=== PATIENT | female | born 1945 | race Native Hawaiian/Other Pacific Islander ===

== ENCOUNTER 2016-09-29 09:18 | Outpatient (CLI) | payer OTHER | END 2016-09-29 19:07 | disposition home or self-care (01) | LOC: MAMMO 09:18 | DX: Z12.31 Encounter for screening mammogram for malignant neoplasm of breast (principal) | CPT/HCPCS: G0202-TC ==

== ENCOUNTER 2016-10-26 08:03 | Outpatient (CLI) | payer OTHER ==
[2016-10-26 08:44] LABS: PLATELET COUNT 278 K/uL (152-353)
[2016-10-26 09:00] LABS: POTASSIUM 4.2 mmol/L (3.6-5.2); SODIUM 135 mmol/L (136-145)
== END 2016-10-26 18:57 | disposition home or self-care (01) ==
LOC: LABW 08:03
PROVIDERS: Internal Medicine
DX: I10 Essential (primary) hypertension (principal)
CPT/HCPCS: 36415; 80053; 80061; 81000; 82043; 82570; 85027

== ENCOUNTER 2017-10-03 09:24 | Outpatient (CLI) | payer OTHER | END 2017-10-03 23:00 | disposition home or self-care (01) | LOC: MAMMO 09:24 | DX: Z12.31 Encounter for screening mammogram for malignant neoplasm of breast (principal) ==

== ENCOUNTER 2018-06-21 09:06 | Outpatient (CLI) | payer OTHER ==
[2018-06-21 09:35] LABS: PLATELET COUNT 292 K/uL (152-353)
[2018-06-21 09:58] LABS: POTASSIUM 4.5 mmol/L (3.6-5.2)
== END 2018-06-21 20:07 | disposition home or self-care (01) ==
LOC: LABW 09:06
PROVIDERS: Internal Medicine
DX: Z00.00 Encounter for general adult medical examination without abnormal findings (principal); I10 Essential (primary) hypertension; Z79.899 Other long term (current) drug therapy
CPT/HCPCS: 36415; 80053; 80061; 81000; 84443; 85027

== ENCOUNTER 2018-10-05 09:01 | Outpatient (CLI) | payer OTHER | END 2018-10-05 22:47 | disposition home or self-care (01) | LOC: MAMMO 09:01 | DX: Z12.31 Encounter for screening mammogram for malignant neoplasm of breast (principal) ==

== ENCOUNTER 2018-11-27 15:13 | Outpatient (CLI) | payer OTHER | END 2018-11-27 21:12 | disposition home or self-care (01) | LOC: RAD 15:13 | DX: J40 Bronchitis, not specified as acute or chronic (principal) ==

== ENCOUNTER 2019-10-07 08:59 | Outpatient (CLI) | payer OTHER | END 2019-10-07 19:10 | disposition home or self-care (01) | LOC: MAMMO 08:59 | DX: Z12.31 Encounter for screening mammogram for malignant neoplasm of breast (principal) ==

== ENCOUNTER 2020-10-12 10:05 | Outpatient (CLI) | payer OTHER | END 2020-10-12 22:41 | disposition home or self-care (01) | LOC: MAMMO 10:05 | PROVIDERS: ATTEND Specialist | DX: Z12.31 Encounter for screening mammogram for malignant neoplasm of breast (principal) ==

== ENCOUNTER → 2020-10-14 11:22 | Outpatient (CLI) | payer OTHER | END | disposition home or self-care (01) | LOC: US 11:22 | PROVIDERS: ATTEND Specialist | DX: R92.8 Other abnormal and inconclusive findings on diagnostic imaging of breast (principal) ==

== ENCOUNTER 2020-11-25 15:24 | Outpatient (CLI) | payer OTHER ==
[2020-11-25 15:49] LABS: PLATELET COUNT 313 K/uL (152-353)
== END 2020-11-25 22:11 | disposition home or self-care (01) ==
LOC: LABW 15:24
PROVIDERS: ATTEND Internal Medicine
DX: Z00.00 Encounter for general adult medical examination without abnormal findings (principal); Z79.899 Other long term (current) drug therapy
CPT/HCPCS: 36415; 85027

== ENCOUNTER 2021-06-28 09:47 | Outpatient (CLI) | payer OTHER ==
[2021-06-28 10:15] LABS: PLATELET COUNT 333 K/uL (152-353)
[2021-06-28 10:38] LABS: POTASSIUM 4.4 mmol/L (3.6-5.2)
== END 2021-06-28 19:03 | disposition home or self-care (01) ==
LOC: LABW 09:47
PROVIDERS: ATTEND Internal Medicine
DX: E78.49 Other hyperlipidemia (principal); I10 Essential (primary) hypertension; E55.9 Vitamin D deficiency, unspecified
CPT/HCPCS: 36415; 80053; 80061; 82306; 84439; 84443; 85027

== ENCOUNTER 2021-10-14 10:43 | Outpatient (CLI) | payer OTHER | END 2021-10-14 19:15 | disposition home or self-care (01) | LOC: MAMMO 10:43 | PROVIDERS: ATTEND Specialist | DX: Z12.31 Encounter for screening mammogram for malignant neoplasm of breast (principal) ==

== ENCOUNTER 2022-05-06 09:19 | Outpatient (CLI) | payer OTHER ==
[2022-05-06 09:46] LABS: PLATELET COUNT 287 K/uL (152-353)
[2022-05-06 10:13] LABS: POTASSIUM 4.6 mmol/L (3.6-5.2)
== END 2022-05-06 21:48 | disposition home or self-care (01) ==
LOC: LABW 09:19
PROVIDERS: ATTEND Internal Medicine
DX: E78.49 Other hyperlipidemia (principal); I10 Essential (primary) hypertension; E55.9 Vitamin D deficiency, unspecified
CPT/HCPCS: 36415; 80053; 80061; 81002; 82306; 84439; 84443; 85027

== ENCOUNTER 2022-10-17 09:53 | Outpatient (CLI) | payer OTHER | END 2022-10-17 19:06 | disposition home or self-care (01) | LOC: MAMMO 09:53 | PROVIDERS: ATTEND Specialist | DX: Z12.31 Encounter for screening mammogram for malignant neoplasm of breast (principal) ==

== ENCOUNTER 2023-04-27 08:58 | Outpatient (CLI) | payer OTHER | END 2023-04-27 19:55 | disposition home or self-care (01) | LOC: RAD 08:58 | PROVIDERS: ATTEND Internal Medicine | DX: M79.644 Pain in right finger(s) (principal) ==

== ENCOUNTER 2023-05-01 12:27 | Outpatient (CLI) | payer OTHER ==
[2023-05-01 13:01] LABS: PLATELET COUNT 343 K/uL (152-353)
[2023-05-01 13:15] LABS: POTASSIUM 5.2 mmol/L (3.6-5.2)
== END 2023-05-01 23:55 | disposition home or self-care (01) ==
LOC: LAB 12:27
PROVIDERS: ATTEND Internal Medicine
DX: Z00.00 Encounter for general adult medical examination without abnormal findings (principal); Z13.820 Encounter for screening for osteoporosis; Z79.899 Other long term (current) drug therapy; E55.9 Vitamin D deficiency, unspecified
CPT/HCPCS: 80053; 80061; 81002; 82306; 84439; 84443; 85027

== ENCOUNTER 2023-10-19 10:11 | Outpatient (CLI) | payer OTHER | END 2023-10-19 19:28 | disposition home or self-care (01) | LOC: MAMMO 10:11 | PROVIDERS: ATTEND Specialist | DX: Z12.31 Encounter for screening mammogram for malignant neoplasm of breast (principal); M81.0 Age-related osteoporosis without current pathological fracture ==